=== PATIENT | female | born 1930 | race Caucasian/White ===

== ENCOUNTER 2016-08-29 13:21 | Emergency (ER) | payer MEDICARE, OTHER ==
[~2016-08-29] VITALS: Ht 170.2 cm; Wt 99.8 kg
--- NOTE | 2016-08-29 13:32 | NUR ---
Pt bib son cc: lower back pain since . VSS. Awaiting md order.
--- NOTE | 2016-08-29 14:00 | NUR ---
pt medicated as ordered
[2016-08-29] MEDS ORDERED: KETOROLAC TROMETHAMINE INJ 30 MG/ML VIAL ONE (14:19)
[2016-08-29] MEDS ORDERED: KETOROLAC TROMETHAMINE INJ 60 MG/2 ML VIAL IM ONE (14:30)
[2016-08-29] MEDS ORDERED: HYDROMORPHONE 1 MG/1 ML DISP.SYRIN ONE (15:25)
[2016-08-29] MEDS ORDERED: ONDANSETRON HCL/PF 4 MG/2 ML VIAL ONE (15:25)
[2016-08-29] MEDS ORDERED: HYDROMORPHONE 1 MG/1 ML DISP.SYRIN IV ONE (15:30)
[2016-08-29] MEDS ORDERED: ONDANSETRON HCL/PF 4 MG/2 ML VIAL IV ONE (15:30)
[2016-08-29 16:38] VITALS: BP 130/82
== END 2016-08-29 16:40 | disposition home or self-care (01) ==
LOC: ER 13:22
DX: M48.56XA Collapsed vertebra, not elsewhere classified, lumbar region, initial encounter for fracture (principal); M54.5 Low back pain; M81.0 Age-related osteoporosis without current pathological fracture; Z88.1 Allergy status to other antibiotic agents
CPT/HCPCS: 72100; 96372; 96374; 96375; 99284; A4606; J1170; J1885; J2405; Z7610